=== PATIENT | female | born 1960 | race Two or more races ===

== ENCOUNTER 2023-09-04 19:27 | Inpatient (IN) | payer OTHER ==
[~2023-09-04] VITALS: Ht 154.9 cm; Wt 68.5 kg
[2023-09-04 20:32] LABS: BASOPHILS % (AUTO) 0.2 % (0.0-2.0); HEMATOCRIT 41 % (33-45); HEMOGLOBIN 13.4 g/dL (11.5-14.8); LYMPHOCYTES # (AUTO) 0.8 K/uL (0.8-4.8); LYMPHOCYTES % (AUTO) 8.1 % (20.0-44.0); MEAN CORPUSCULAR HEMOGLOBIN 27 PG (26.0-33.0); MEAN CORPUSCULAR HGB CONC 33 g/dl (31.0-36.0); MEAN CORPUSCULAR VOLUME 83 fL (82-100); MONOCYTES # (AUTO) 0.2 K/uL (0.1-1.30); MONOCYTES % (AUTO) 2.3 % (2.0-12.0); NEUTROPHILS # (AUTO) 9.4 K/uL (1.8-8.9); NEUTROPHILS % (AUTO) 89.4 % (43.0-81.0); PLATELET COUNT (AUTO) 264 K/uL (150-450); RED BLOOD CELL COUNT(AUTO) 4.88 MIL/uL (4.0-5.2); RED CELL DISTRIBUTION WIDTH 13.9 % (11.5-15.0); WHITE BLOOD COUNT (AUTO) 10.5 K/uL (4.3-11.0)
[2023-09-04 21:10] LABS: PARTIAL THROMBOPLASTIN TIME 22.5 SEC (24.3-34.3); PROTHROMBIN TIME 10.6 SECS (9.2-11.1)
[2023-09-04 21:15] LABS: ALANINE AMINOTRANSFERASE 28 U/L (12-78); ALBUMIN 3.8 g/dL (3.4-5.0); ALKALINE PHOSPHATASE 130 U/L (46-116); ASPARTATE AMINOTRANSFERASE 22 U/L (15-37); BILIRUBIN,DIRECT 0.1 mg/dL (0.0-0.2); BILIRUBIN,TOTAL 0.3 mg/dL (0.2-1.0); CALCIUM, SERUM 9.4 mg/dL (8.5-10.1); CARBON DIOXIDE 24 mmol/L (21-32); CHLORIDE 102 mmol/L (98-107); CREATININE 0.9 mg/dL (0.6-1.3); GLUCOSE 173 mg/dL (74-106); POTASSIUM 3.4 mmol/L (3.5-5.1); SODIUM SERUM 140 mmol/L (136-145); TOTAL PROTEIN, SERUM 8.1 g/dL (6.4-8.2); UREA NITROGEN, BLOOD 15 mg/dL (7-18)
[2023-09-04 21:26] LABS: LACTIC ACID 4.3 mmol/L (0.4-2.0)
[2023-09-04] MEDS ORDERED: CEFEPIME 1 GM in IV D5W 50 ML IV ONE (22:00)
[2023-09-04] MEDS ORDERED: CEFEPIME 1 GM VIAL ONE (22:00)
[2023-09-04] MEDS ORDERED: IV NS 0.9% 1,000 ML BAG IV ONE (22:00)
[2023-09-04] MEDS ORDERED: VANCOMYCIN 1 GM in IV D5W 250 ML IV ONE (22:00)
[2023-09-04 22:49] LABS: APPEARANCE,URINE SLIGHTLY CLOUDY (CLEAR); COLOR,URINE YELLOW (YELLOW)
[2023-09-04 22:50] LABS: ADD URINE CULTURE NO; BACTERIA,URINE Rare /HPF (None Seen); BILIRUBIN,URINE NEGATIVE (NEGATIVE); BLOOD, URINE TRACE Ery/uL (NEGATIVE); KETONES,URINE 3+ mg/dL (NEGATIVE); LEUKOCYTE ESTERASE ,URINE NEGATIVE (NEGATIVE); NITRITE, URINE NEGATIVE (NEGATIVE); PROTEIN,URINE NEGATIVE (NEGATIVE); RBC,URINE 0-2 /HPF (0-2); SQUAMOUS EPITHELIAL CELL,UR Few /HPF (None Seen); UGLUCOSE NEGATIVE (NEGATIVE); UROBILINOGEN,URINE 0.2 EU/dL (0.2); WBC,URINE 0-2 /HPF (0-3)
[2023-09-04 22:51] LABS: AMPHETAMINE, URINE NEGATIVE (NEGATIVE); BARBITURATE, URINE NEGATIVE (NEGATIVE); BENZODIAZEPINE, URINE NEGATIVE (NEGATIVE); CANNABINOID, URINE NEGATIVE (NEGATIVE); COCCAINE, URINE NEGATIVE (NEGATIVE); OPIATE, URINE NEGATIVE (NEGATIVE); PHENCYCLIDINE SCREEN,URINE NEGATIVE (NEGATIVE)
[2023-09-04] MEDS ORDERED: VANCOMYCIN 1 GM /D5W 250 ML PB IV ONE (23:14)
[2023-09-05] VITALS (7 sets, daily range): BP systolic 92–129; BP diastolic 48–79; TEMP 97.8–98.7; O2SAT 96–99
[2023-09-05] MEDS ORDERED: ZOLPIDEM TARTRATE 5 MG TABLET PO PRN (00:30)
[2023-09-05] MEDS ORDERED: Z GUARD REMEDY 4 OZ OINT TP PRN (00:30)
[2023-09-05] MEDS ORDERED: MAG HYDROX/AL HYDROX/SIMETH 30 ML UDC PO PRN (00:30)
[2023-09-05] MEDS ORDERED: ACETAMINOPHEN 325 MG TABLET PO PRN (00:30)
[2023-09-05] MEDS ORDERED: ONDANSETRON HCL/PF 4 MG/2 ML VIAL IVP PRN (00:30)
[2023-09-05] MEDS ORDERED: MAGNESIUM HYDROXIDE 30 ML UDC PO PRN (00:30)
[2023-09-05] MEDS ORDERED: MULT-447 PO (09:05)
[2023-09-05] MEDS: IV NS 0.9% 1,000 ML IV PRN ×2 (09:47→21:01)
[2023-09-05] MEDS ORDERED: IOHEXOL-350 100 ML VIAL IV ONE (18:36)
[2023-09-05] MEDS ORDERED: IV NS 0.9% 250 ML IV ONE (18:37)
[2023-09-05] MEDS: ASPIRIN 81 MG TAB.CHEW PO SCH (21:20)
[2023-09-05 22:09] LABS: CHOLESTEROL 185 mg/dL (<200); HDL CHOLESTEROL 68 mg/dL (40-60); LDL 103 mg/dL (0-99); TRIGLYCERIDES 85 mg/dL (30-150)
[2023-09-06] VITALS: BP_SYST 103; BP_DIAS 57; BP_DIAS 58; TEMP 97.9; O2SAT 97
[2023-09-06 04:00] VITALS: BP 108/68; TEMP 98; O2SAT 96
[2023-09-06] MEDS: IV NS 0.9% 1,000 ML IV PRN (05:32)
[2023-09-06 06:24] LABS: BASOPHILS % (AUTO) 0.6 % (0.0-2.0); EOSINOPHILS # (AUTO) 0.1 K/uL (0.0-0.7); EOSINOPHILS % (AUTO) 1.3 % (0.0-6.0); HEMATOCRIT 32 % (33-45); HEMOGLOBIN 10.6 g/dL (11.5-14.8); LYMPHOCYTES # (AUTO) 1.6 K/uL (0.8-4.8); LYMPHOCYTES % (AUTO) 36.4 % (20.0-44.0); MEAN CORPUSCULAR HEMOGLOBIN 27 PG (26.0-33.0); MEAN CORPUSCULAR HGB CONC 33 g/dl (31.0-36.0); MEAN CORPUSCULAR VOLUME 83 fL (82-100); MONOCYTES # (AUTO) 0.3 K/uL (0.1-1.30); NEUTROPHILS # (AUTO) 2.4 K/uL (1.8-8.9); NEUTROPHILS % (AUTO) 54.7 % (43.0-81.0); PLATELET COUNT (AUTO) 174 K/uL (150-450); RED BLOOD CELL COUNT(AUTO) 3.89 MIL/uL (4.0-5.2); WHITE BLOOD COUNT (AUTO) 4.5 K/uL (4.3-11.0)
[2023-09-06 06:42] LABS: CALCIUM, SERUM 8.3 mg/dL (8.5-10.1); CREATININE 0.6 mg/dL (0.6-1.3); MAGNESIUM 2.1 mg/dL (1.8-2.4); POTASSIUM 3.4 mmol/L (3.5-5.1)
[2023-09-06 08:00] VITALS: BP 122/59; TEMP 97.9; O2SAT 98
[2023-09-06] MEDS ORDERED: POTASSIUM CHLORIDE 20 MEQ TAB.PRT.SR PO ONE ×2 (08:30→10:00)
[2023-09-06] MEDS: ASPIRIN 81 MG TAB.CHEW PO SCH (09:12)
[2023-09-06] MEDS ORDERED: GADOTERATE MEGLUMINE 10 MMOL/20 ML VIAL IV ONE (14:20)
[2023-09-06 16:31] VITALS: BP 107/58; TEMP 97.7; O2SAT 98
[2023-09-06 20:00] VITALS: BP 97/54; TEMP 98.1; O2SAT 97
[2023-09-07] VITALS: BP_SYST 90; BP_SYST 92; BP_DIAS 49; BP_DIAS 60; TEMP 98.2; O2SAT 98
[2023-09-07] MEDS: IV NS 0.9% 1,000 ML IV PRN (02:30)
[2023-09-07 04:00] VITALS: BP 104/65; TEMP 98.1; O2SAT 98
[2023-09-07 07:30] VITALS: BP 109/74; TEMP 98; O2SAT 98
[2023-09-07] MEDS: ASPIRIN 81 MG TAB.CHEW PO SCH (09:50)
[2023-09-07] MEDS ORDERED: POTASSIUM CHLORIDE 20 MEQ TAB.PRT.SR PO ONE (15:00)
[2023-09-07] MEDS ORDERED: POTASSIUM CHLORIDE 20 MEQ TAB.PRT.SR PO SCH (15:00)
[2023-09-07] MEDS ORDERED: ASPI-1169 PO (16:08)
== END 2023-09-07 17:00 | disposition home or self-care (01) | DRG 73 ==
LOC: ER 19:50 → TELE 09-05 00:36
PROVIDERS: ADMIT Nurse Practitioner Acute Care; ATTEND Nurse Practitioner Acute Care
DX: G90.8 Other disorders of autonomic nervous system (principal); G93.41 Metabolic encephalopathy; J69.0 Pneumonitis due to inhalation of food and vomit; E87.20 Acidosis, unspecified; Q28.1 Other malformations of precerebral vessels; E78.5 Hyperlipidemia, unspecified; E87.6 Hypokalemia; I10 Essential (primary) hypertension; J45.909 Unspecified asthma, uncomplicated; M19.90 Unspecified osteoarthritis, unspecified site; R56.9 Unspecified convulsions; R73.03 Prediabetes
CPT/HCPCS: 36415; 70450-TC; 70496-TC; 70498-TC; 70553-TC; 71045-TC; 73502; 80048-TC; 80061-TC; 80076-TC; 81001; 83605-TC; 83735-TC; 84100-TC; 84484-TC; 85025-TC; 85730-TC; 87040-TC; 87086-TC; 95819-TC; A4223; A9575; G0378; J0692; J3370; J7030; J7050; J7060; Q9967